=== PATIENT | female | born 1995 | race Caucasian/White ===

== ENCOUNTER 2022-09-12 13:01 | Emergency (ER) | payer OTHER ==
[2022-09-12 13:14] VITALS: O2SAT 99
[2022-09-12] MEDS ORDERED: NORCO 5/325 MG PO ONE (13:24)
[2022-09-12] MEDS ORDERED: TORAdol 30 mg Injection IM ONE (13:24)
[2022-09-12] MEDS ORDERED: TORAdol 30 mg Injection ONE (13:28)
[2022-09-12] MEDS ORDERED: NORCO 5/325 MG ONE (13:29)
--- NOTE | 2022-09-12 14:10 | ERPHSYRPT ---
- History of Present Illness Time Seen by Provider: 09/12/22 13:12 Source: patient Exam Limitations: no limitations Patient Subjective Stated Complaint: pt reports falling as she stepped down out of her house, landing on the side of her right ankle. reports sudden intense pain and a popping sensation. Triage Nursing Assessment: pt is aox3, pupils perrl, afebrile, resps easy and non labored, cap refill < 3 seconds, radial pulses strong and equal, pt skin pink warm dry. moderate swelling noted to the lateral right ankle, skin is intact, ROM and sensation intact. Physician History: 27 years old female presented in the ER with chief complaint of right ankle pain and swelling after she stepped out and bent her ankle leading to fall on the right ankle. She is not able to get up and put much weight on it, does report hearing a snapping sound. Pain is also radiating to the right lateral foot. No injury anywhere else. Method of Injury: fell, twisted Occurred: just prior to arrival Quality: sharpness Severity of Pain-Max: severe Severity of Pain-Current: severe Lower Extremities Pain: foot: bilateral, ankle: bilateral Modifying Factors: Improves With: immobilization. Worsens With: movement Associated Symptoms: unable to bear weight, snapping sensation, popping sensation Allergies/Adverse Reactions: cefdinir [From Omnicef] Allergy (Verified 09/12/22 13:14) Cephalosporins Allergy (Verified 09/12/22 13:14) Penicillins Allergy (Verified 09/12/22 13:14) Sulfa (Sulfonamide Antibiotics) Allergy (Verified 09/12/22 13:14) Hx Tetanus, Diphtheria Vaccination/Date Given: Yes Hx Influenza Vaccination/Date Given: No Hx Pneumococcal Vaccination/Date Given: No Immunizations Up to Date: Yes Travel Risk - International Travel Have you traveled outside of the country in past 3 weeks: No - Coronavirus Screening Are you exhibiting any of the following symptoms?: No Close contact with a COVID-19 positive Pt in past 14-21 Days: No - Vaccine Status Have you recieved a Covid-19 vaccination: No Head Waitress: Unknown - Vaccination Dates Dates if Unknown: unk - Review of Systems Constitutional: No Symptoms Ears, Nose, & Throat: No Symptoms Respiratory: No Symptoms Cardiac: No Symptoms Abdominal/Gastrointestinal: No Symptoms Genitourinary Symptoms: No Symptoms Musculoskeletal: Fall, Joint Pain, Joint Swelling Skin: No Symptoms Neurological: No Symptoms Psychological: No Symptoms Hematologic/Lymphatic: No Symptoms Immunological/Allergic: No Symptoms - Past Medical History Pertinent Past Medical History: Yes Psycho-Social History: Anxiety - Past Surgical History Past Surgical History: Yes Other Surgical History: extensive ear surgeries - Social History Smoking Status: Never smoker Drug Use: none Patient Lives Alone: No - Female History Hx Last Menstrual Period: 08/13/22 Hx Now: No - Nursing Vital Signs Nursing Vital Signs: Initial Vital Signs Temperature 98 F 09/12/22 13:05 Pulse Rate 98 H 09/12/22 13:05 Respiratory Rate 16 09/12/22 13:05 Blood Pressure 138/90 09/12/22 13:05 O2 Sat by Pulse Oximetry 99 09/12/22 13:05 Pain Scale Pain Intensity 9 - Physical Exam General Appearance: no apparent distress, alert Eyes, Ears, Nose, Throat Exam: normal ENT inspection Neck Exam: normal inspection, supple, full range of motion Cardiovascular/Respiratory Exam: normal breath sounds, regular rate/rhythm Back Exam: normal inspection, normal range of motion Hips Exam: bilateral: normal range of motion Legs Exam: bilateral leg: non-tender, normal inspection, normal range of motion, no evidence of injury Knees Exam: bilateral knee: normal range of motion, no evidence of injury Ankle Exam: right ankle: bone tenderness (Lateral malleolus), limited range of motion, pain, soft tissue tenderness, swelling, left ankle: non-tender, normal inspection, normal range of motion, no evidence of injury Foot Exam: right foot: pain, soft tissue tenderness, swelling, left foot: non- tender, normal inspection, normal range of motion, no evidence of injury Neuro/Tendon Exam: normal sensation, normal motor functions Mental Status Exam: alert, oriented x 3, cooperative Skin Exam: normal color SpO2 Interpretation: normal SpO2: 99 O2 Delivery: Room Air Ordered Tests: Active Orders 24 hr Category Date Time Status ANKLE (3 VIEWS) Stat Exams 09/12/22 13:42 Taken FOOT (MINIMUM 3 VIEWS) Stat Exams 09/12/22 13:42 Taken Medication Summary Discontinued Medications Generic Name Dose Route Start Last Admin Trade Name Freq PRN Reason Stop Dose Admin Hydrocodone Bitart/Acetaminophen 1 tab 09/12/22 13:24 09/12/22 13:32 Hydrocodone/Apap 5/325 Mg Tablet PO 09/12/22 13:25 1 tab STAT ONE Administration Hydrocodone Bitart/Acetaminophen Confirm 09/12/22 13:29 Hydrocodone/Apap 5/325 Mg Tablet Administered 09/12/22 13:30 Dose 1 tab .ROUTE .STK-MED ONE Ketorolac Tromethamine 30 mg 09/12/22 13:24 09/12/22 13:32 Ketorolac Tromethamine 30 Mg/Ml Inj IM 09/12/22 13:25 30 mg STAT ONE Administration Ketorolac Tromethamine Confirm 09/12/22 13:28 Ketorolac Tromethamine 30 Mg/Ml Inj Administered 09/12/22 13:29 Dose 30 mg .ROUTE .STK-MED ONE - Progress Progress: improved, pain not gone completely Progress Note: 09/12/22 14:08 Given Toradol and Nabb for symptomatic relief, on reevaluation feeling better. No obvious fracture dislocation on x-rays reviewed by me, official report pending. Aircast, crutches, NSAIDs and outpatient podiatry follow-up. Counseled pt/family regarding: diagnosis, need for follow-up, rad results - Departure Departure Disposition: Home Clinical Impression: Ankle sprain Condition: Stable Critical Care Time: No Referrals: Provider,Unknown [Primary Care Provider] - Follow up/PCP as directed GERMAIN LOVELL DPM [ACTIVE STAFF] - Follow up/PCP as directed (Wednesday for reevaluation) Instructions: Ankle Sprain (DC) Additional Instructions: Take Tylenol/ibuprofen as needed for pain. Keep it elevated. Intermittent ice application. Weightbearing only as tolerated. Follow-up with podiatry for reevaluation on Wednesday. Return to ER for any worsening. Prescriptions: Ibuprofen 600 mg PO Q6HPRN PRN 10 Days #20 tablet PRN Reason: Pain
[2022-09-12 14:27] VITALS: BP 128/78; PULSE 89
--- NOTE | 2022-09-12 18:44 | XRAY ---
Indication: Pain following twisting injury. Comparison: None 3 nonweightbearing views right foot demonstrates tiny cuboid accessory ossicle. No other bony, articular, or soft tissue abnormalities.
--- NOTE | 2022-09-12 18:44 | XRAY ---
Indication: Pain following twisting injury. Comparison: None 3 view right ankle demonstrates lateral soft tissue swelling. No other bony, articular, or soft tissue abnormalities.
== END 2022-09-12 14:26 | disposition home or self-care (01) ==
LOC: ED 13:01
DX: S93.401A Sprain of unspecified ligament of right ankle, initial encounter (principal); M25.571 Pain in right ankle and joints of right foot; X50.1XXA Overexertion from prolonged static or awkward postures, initial encounter
CPT/HCPCS: 73610; 73630; 96372; 99283; J1885; A9270-GY